=== PATIENT | male | born 1935 | race Caucasian/White ===

== ENCOUNTER → 2017-02-15 | Outpatient (CLI) | payer MEDICARE ==
[~2017-02-15] MED LIST: ALBU8.5H5 INH; ALLO300T PO; BUDE10.2 INH; BUDE10.22 INH; COLC0.6T37 PO; DILT120C64 PO; FLUT100D INH; FLUT16SP NS; FLUT1DIS3 INH; HYDR-3138 PO; IPRA3AMP NPPB; LACT1CAP37 PO; LEVO500T33 PO; LISI-170 PO; NADO80TA PO; OXYC-302 PO; PANT40TA5 PO; POLY17PO5 PO; PRAV40TA2 PO; PRED10TA14 PO; RIVA15TA PO; TIOT18CA INH; TIOT4MIS3 INH
== END | disposition home or self-care (01) ==
LOC: CFH 14:10
PROVIDERS: ATTEND Internal Medicine Hematology & Oncology
DX: C34.12 Malignant neoplasm of upper lobe, left bronchus or lung (principal); R91.1 Solitary pulmonary nodule
CPT/HCPCS: 71250

== ENCOUNTER → 2018-03-16 | Outpatient (CLI) | payer MEDICARE ==
[~2018-03-16] MED LIST changes: -HYDR-3138 PO; +HYDR-3237 PO; -LEVO500T33 PO; +LEVO500T47 PO
== END ==
LOC: CFH 10:21
PROVIDERS: ATTEND Internal Medicine Hematology & Oncology
DX: C34.12 Malignant neoplasm of upper lobe, left bronchus or lung (principal); J43.2 Centrilobular emphysema; J90 Pleural effusion, not elsewhere classified; I70.0 Atherosclerosis of aorta; N28.1 Cyst of kidney, acquired
CPT/HCPCS: 71250

== ENCOUNTER → 2018-04-12 | Outpatient (CLI) | payer MEDICARE | LOC: PETCFH 09:31 | PROVIDERS: ATTEND Internal Medicine Hematology & Oncology | DX: C34.12 Malignant neoplasm of upper lobe, left bronchus or lung (principal); J98.4 Other disorders of lung | CPT/HCPCS: 78815; A9552 ==

== ENCOUNTER → 2018-04-26 | Outpatient (CLI) | payer MEDICARE | END | disposition home or self-care (01) | LOC: ROC 08:33 | PROVIDERS: ATTEND Radiology Radiation Oncology | DX: C34.12 Malignant neoplasm of upper lobe, left bronchus or lung (principal) | CPT/HCPCS: G0463 ==

== ENCOUNTER 2018-05-04 06:06 | Day surgery (SDC) | payer MEDICARE ==
[~2018-05-04] VITALS: Ht 177.8 cm; Wt 94.0 kg
[2018-05-04] MEDS ORDERED: SODIUM CHLORIDE 0.9% 1,000 ML IV SCH (06:52)
[2018-05-04 07:00] VITALS: BP 174/103
[2018-05-04] MEDS ORDERED: UMEC1DIS INH (07:00)
[2018-05-04] MEDS ORDERED: LISI40TA PO (07:00)
[2018-05-04] MEDS ORDERED: NADO40TA PO (07:00)
[2018-05-04 07:23] VITALS: BP 155/89
[2018-05-04] MEDS ORDERED: LIDOCAINE-MPF 2% ,5ML ONE (07:45)
[2018-05-04] MEDS ORDERED: FENTANYL PF 100 MCG/2ML ONE (08:06)
[2018-05-04] MEDS ORDERED: MIDAZOLAM 1 MG/ML, 5ML ONE (08:06)
[2018-05-04] MEDS ORDERED: FLUMAZENIL 0.1 MG/1 ML, 5ML ONE (08:06)
[2018-05-04] MEDS ORDERED: NALOXONE 1 MG/ML, 2ML ONE (08:07)
== END 2018-05-04 10:15 ==
LOC: OUT 06:06 → EDSTATUS 07:30 → OUT 10:15
PROVIDERS: ATTEND Radiology Radiation Oncology
DX: C34.92 Malignant neoplasm of unspecified part of left bronchus or lung (principal); I10 Essential (primary) hypertension; J44.9 Chronic obstructive pulmonary disease, unspecified; Z87.891 Personal history of nicotine dependence; Z72.89 Other problems related to lifestyle
CPT/HCPCS: 32553; 71045; 77011; 99156; A4648; J2250; J3010; J3490; J7030; 99157; J2310

== ENCOUNTER → 2018-08-15 | Outpatient (CLI) | payer MEDICARE ==
[~2018-08-15] MED LIST changes: -IPRA3AMP NPPB; +IPRA3AMP30 NPPB; +LISI40TA PO; +NADO40TA PO; +UMEC1DIS INH
== END | disposition home or self-care (01) ==
LOC: CFH 10:53
PROVIDERS: ATTEND Radiology Radiation Oncology
DX: R91.1 Solitary pulmonary nodule (principal)
CPT/HCPCS: 71250

== ENCOUNTER → 2018-08-17 | Outpatient (CLI) | payer MEDICARE | END | disposition home or self-care (01) | LOC: ROC 08:36 | PROVIDERS: ATTEND Radiology Radiation Oncology | DX: C34.12 Malignant neoplasm of upper lobe, left bronchus or lung (principal) | CPT/HCPCS: G0463 ==